=== PATIENT | male | born 1940 | race Caucasian/White ===

== ENCOUNTER → 2016-05-26 | Outpatient (CLI) | payer MEDICARE, OTHER | LOC: RAD 07:32 | PROVIDERS: ATTEND Internal Medicine Gastroenterology | DX: D50.0 Iron deficiency anemia secondary to blood loss (chronic) (principal) | CPT/HCPCS: 74000; 74250 ==

== ENCOUNTER 2016-08-25 22:49 | Emergency (ER) | payer MEDICARE, OTHER ==
[2016-08-25] MEDS ORDERED: ACETAMINOPHEN 325 MG TABLET PO ONE (23:57)
[2016-08-26] MEDS ORDERED: IPRATROPIUM/ALBUTEROL 0.5-2.5 MG/3 ML AMPUL NEB ONE (00:04)
[2016-08-26] MEDS ORDERED: CEFTRIAXONE 1 GM/D5W RTU 50 ML IV ONE (00:52)
[2016-08-26] MEDS ORDERED: LEVOFLOXACIN 750 MG/D5W RTU 150 ML IV ONE (00:52)
[2016-08-26] MEDS ORDERED: NORMAL SALINE 1000 ML 1,000 ML IV ONE ×3 (00:53→08:32)
--- NOTE | 2016-08-26 00:54 | ER Document Report ---
ED General - General Chief Complaint: Breathing Difficulty Stated Complaint: DIFFICULTY BREATHING Notes: Patient is a 75-year-old male, chronically ill has history of active colon cancer stage IV with metastases to the right lung and has a history of a left pneumonectomy after primary lung cancer who presents with fever, rigors, shortness of breath and hypoxia. Patient states that he had been feeling well up until today. He then developed a productive cough and noticing that he was increasingly short of breath. Today family noticed the patient was shaking uncontrollably so EMS was contacted. EMS found patient to be satting 83% on room air. He does have home oxygen available to him but generally does not require it and notes that his oxygen saturations are typically 93-95% on room air. After my evaluation he denies any focal pain states he continues to feel somewhat short of breath although improved after receiving a nebulizer by EMS. Notes he is had similar symptoms in the past when he had pneumonia. He has not seen his primary care doctor regarding today's concerns. He has not had any vomiting, diarrhea, headache, neck pain or altered mental status. He has not done anything to treat his symptoms and has not noted anything worsens his symptoms. TRAVEL OUTSIDE OF THE [place] IN LAST 30 DAYS: No - Related Data Allergies/Adverse Reactions: iodine [Iodine] Allergy (Verified 01/18/15 20:17) promethazine HCl [From Phenergan] Adverse Reaction (Verified 01/19/15 01:35) Past Medical History - General Information source: Patient - Social History Smoking Status: Former Smoker Frequency of alcohol use: None Drug Abuse: None Lives with: Family Family History: Reviewed & Not Pertinent Patient has suicidal ideation: No Patient has homicidal ideation: No - Past Medical History Cardiac Medical History: Reports: Hx Atrial Fibrillation - With ablation, Hx Heart Attack Denies: Hx Congestive Heart Failure, Hx Coronary Artery Disease, Hx Hypertension - Has it sometimes Pulmonary Medical History: Reports: Hx Asthma, Hx Pneumonia - Little child Denies: Hx Bronchitis, Hx COPD, Hx Tuberculosis Neurological Medical History: Denies: Hx Cerebrovascular Accident, Hx Seizures Renal/ Medical History: Reports: Hx Benign Prostatic Hyperplasia, Hx Kidney Stones. Denies: Hx End Stage Renal Disease, Hx Peritoneal Dialysis Malignancy Medical History: Reports Hx Lung Cancer - With left lobe removed GI Medical History: Reports: Hx Gastroesophageal Reflux Disease. Denies: Hx Cirrhosis, Hx Ulcer Musculoskeltal Medical History: Reports Hx Arthritis - All joints, Denies Hx Multiple Sclerosis, Reports Hx Musculoskeletal Trauma Psychiatric Medical History: Denies: Hx Bipolar Disorder, Hx Depression, Hx Schizophrenia Traumatic Medical History: Reports: Hx Fractures Past Surgical History: Reports: Hx Appendectomy, Hx Cardiac Surgery - Ablation for A. fib, Hx Coronary Artery Bypass Graft - Triple Bypass, Hx Orthopedic Surgery - Right hip replacement, Hx Vascular Surgery - Port-A-Cath - Immunizations Hx Diphtheria, Pertussis, Tetanus Vaccination: Yes Hx Pneumococcal Vaccination: 05/21/12 Review of Systems - Review of Systems Notes: Constitutional: Positive for fever. HENT: Negative for sore throat. Eyes: Negative for visual changes. Cardiovascular: Negative for chest pain. Respiratory: Positive for shortness of breath. Gastrointestinal: Negative for abdominal pain, vomiting or diarrhea. Genitourinary: Negative for dysuria. Musculoskeletal: Negative for back pain. Skin: Negative for rash. Neurological: Negative for headaches, weakness or numbness. 10 point ROS negative except as marked above and in HPI. Physical Exam - Vital signs Vitals: Temp Pulse Resp BP Pulse Ox 100.9 F H 100 20 117/73 96 08/25/16 23:14 08/25/16 23:14 08/25/16 23:14 08/25/16 23:14 08/25/16 23:14 Interpretation: Tachycardic, Hypoxic, Febrile Notes: PHYSICAL EXAMINATION: GENERAL: Elderly, in no acute distress HEAD: Atraumatic, normocephalic. EYES: Pupils equal round and reactive to light, extraocular movements intact, sclera anicteric, conjunctiva are normal. ENT: nares patent, oropharynx clear without exudates. Dry mucous membranes. NECK: Normal range of motion, supple without lymphadenopathy LUNGS: Absent breath sounds on the left. Diminished breath sounds at the right low base. No wheezing. Mild tachypnea with respiratory rate of 22 at the time of assessment. No distress. HEART: Regular tachycardia without murmurs ABDOMEN: Soft, nontender, normoactive bowel sounds. No guarding, no rebound. No masses appreciated. EXTREMITIES: Normal range of motion, no pitting or edema. No cyanosis. NEUROLOGICAL: No focal neurological deficits. Moves all extremities spontaneously and on command. PSYCH: Normal mood, normal affect. SKIN: Warm, Dry, normal turgor, no rashes or lesions noted. 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 Patient is overall somewhat ill in appearance with mild tachycardia and fever at time of arrival. He has history of a left lobectomy. Clinical history is most consistent with a right-sided pneumonia versus influenza. He is not wheezing and his clinical picture is not consistent with an acute COPD exacerbation at this time. Will pursue laboratories, culture, chest x-ray, begin him. Except for some levofloxacin to cover for community-acquired pneumonia and reassess. 08/26/16 03:18 Patient has had some mild downtrend in his blood pressure and is now mildly hypotensive with a systolic blood pressure of 88. His tachycardia however has resolved. He is now afebrile. Laboratory is a returned and are overall unremarkable. Chest x-ray shows a slight infiltrate in the left lobe base consistent with exam. No respiratory distress at this time. I've ordered an additional 1 L fluid bolus at this time. Prior to noticing the hypotension, had discussed this case with Dr. Paulino for admission. He will be updated on his episode of hypotension 08/26/16 03:33 After 500 mL bolus patient's fluid has normalized with a systolic blood pressure 105. He continues to be overall well appearing. - Vital Signs Vital signs: Temp Pulse Resp BP Pulse Ox 100.9 F H 100 17 72/44 L 95 08/25/16 23:14 08/25/16 23:14 08/26/16 03:07 08/26/16 03:08 08/26/16 03:08 - Laboratory Result Diagrams: 08/26/16 01:12 08/26/16 01:12 Laboratory results interpreted by me: 08/26/16 08/26/16 01:12 01:12 RBC 4.26 L Hgb 12.7 L RDW 24.0 H Plt Count 147 L Seg Neuts % (Manual) 92 H Band Neutrophils % 2 L Lymphocytes % (Manual) 0 L Abs Lymphs (Manual) 0.0 L Glucose 195 H - Diagnostic Test Radiology reviewed: Image reviewed, Reports reviewed Radiology results interpreted by me: 08/26/16 03:19 CXR: s/p left pneumonectomy. Right lower lobe infiltrate Discharge - Discharge Clinical Impression: Pneumonia Qualifiers: Pneumonia type: due to Escherichia coli Laterality: right Lung location: lower lobe of lung Qualified Code(s): J15.5 - Pneumonia due to Escherichia coli Sepsis Qualifiers: Sepsis type: sepsis due to unspecified organism Qualified Code(s): A41.9 - Sepsis, unspecified organism Condition: Fair Disposition: ADMITTED INPATIENT [facility] Unit Admitted: [facility] Referrals: JOSELUIS YBARRA NP [Primary Care Provider] - Follow up as needed
[2016-08-26 01:28] LABS: VENOUS BLOOD BASE EXCESS -1.7 mmol/L; VENOUS BLOOD HCO3 24.9 mmol/L (20-32); VENOUS BLOOD PCO2 49.5 mmHg (35-63); VENOUS BLOOD PH 7.32 (7.30-7.42)
[2016-08-26 01:43] LABS: HEMATOCRIT 38.6 % (37.9-51.0); HEMOGLOBIN 12.7 g/dL (13.5-17.0); HGB HCT DIFFERENCE -0.5; MEAN CORPUSCULAR HEMOGLOBIN 29.7 pg (27.0-33.4); MEAN CORPUSCULAR HGB CONC 32.8 g/dL (32.0-36.0); MEAN CORPUSCULAR VOLUME 91 fl (80-97); RED BLOOD COUNT 4.26 10^6/uL (4.35-5.55); WHITE BLOOD COUNT 4.6 10^3/uL (4.0-10.5)
[2016-08-26 01:52] LABS: BAND NEUTROPHILS % (MANUAL) 2 % (3-5); BASOPHILS % (MANUAL) 0 % (0-2); EOSINOPHILS % (MANUAL) 0 % (0-6); LYMPHOCYTES % (MANUAL) 0 % (13-45); TOTAL CELLS COUNTED 100
[2016-08-26 01:54] LABS: ANISOCYTOSIS 3+; TOXIC GRANULATION SLIGHT
[2016-08-26 02:08] LABS: ANION GAP 13 (5-19); BLOOD UREA NITROGEN 15 mg/dL (7-20); CALCIUM 8.4 mg/dL (8.4-10.2); CARBON DIOXIDE 27 mmol/L (22-30); CHLORIDE 100 mmol/L (98-107); CREATININE RESULT 0.85 mg/dL (0.52-1.25); GLUCOSE 195 mg/dL (75-110); POTASSIUM 3.9 mmol/L (3.6-5.0)
--- NOTE | 2016-08-26 06:12 | EKG REPORT ---
SEVERITY:- ABNORMAL ECG - SINUS RHYTHM FIRST DEGREE AV BLOCK INCOMPLETE RIGHT BUNDLE BRANCH BLOCK BORDERLINE PROLONGED QT INTERVAL APC : Confirmed by: Jed Edward 26-Aug-2016 06:11:38
[2016-08-26 09:27] VITALS: BP 110/60
[2016-08-26 09:28] LABS: APPEARANCE,URINE CLEAR; BILIRUBIN,URINE NEGATIVE (NEGATIVE); GLUCOSE, URINE NEGATIVE (NEGATIVE); KETONES,URINE NEGATIVE (NEGATIVE); LEUKOCYTE ESTERASE,URINE NEGATIVE (NEGATIVE); NITRITE,URINE NEGATIVE (NEGATIVE); PROTEIN,URINE NEGATIVE (NEGATIVE); URINE SPECIFIC GRAVITY 1.008; UROBILINOGEN,URINE NEGATIVE mg/dL (<2.0)
== END 2016-08-26 10:01 | disposition short-term general hospital (02) ==
LOC: ER 22:49 → UNDOADMIN 08-26 03:39 → EH 08-26 03:39 → ER 08-26 10:01
DX: J15.5 Pneumonia due to Escherichia coli (principal); A41.9 Sepsis, unspecified organism; R06.00 Dyspnea, unspecified; C61 Malignant neoplasm of prostate; C78.01 Secondary malignant neoplasm of right lung; R50.9 Fever, unspecified; I48.91 Unspecified atrial fibrillation; J45.909 Unspecified asthma, uncomplicated; K21.9 Gastro-esophageal reflux disease without esophagitis; Z87.442 Personal history of urinary calculi; Z95.1 Presence of aortocoronary bypass graft; Z87.891 Personal history of nicotine dependence; Z96.641 Presence of right artificial hip joint; I25.2 Old myocardial infarction
CPT/HCPCS: 93005; 94640; 99285; 96365; 96367; 36415; 87040; 87086; 85025; 80048; 81001; 82803; 83605; 87804; 71010; 93010; A9270 ×2; J7030; J0696; J1956; J7620

== ENCOUNTER → 2016-09-10 | Outpatient (CLI) | payer MEDICARE, OTHER | LOC: RAD 17:21 | PROVIDERS: ATTEND Internal Medicine | DX: C18.2 Malignant neoplasm of ascending colon (principal); C43.59 Malignant melanoma of other part of trunk | CPT/HCPCS: 78815; A9552 ==